=== PATIENT | male | born 1940 | race Two or more races ===

== ENCOUNTER 2021-05-30 11:30 | Outpatient (CLI) | payer OTHER | END 2021-05-30 11:31 | disposition home or self-care (01) | LOC: LAB 11:30 | PROVIDERS: ATTEND Radiology Diagnostic Radiology | DX: Z51.81 Encounter for therapeutic drug level monitoring (principal) ==

== ENCOUNTER 2021-06-02 07:15 | Outpatient (CLI) | payer OTHER | END 2021-06-02 07:25 | disposition home or self-care (01) | LOC: TOM 07:15 | PROVIDERS: ATTEND Surgery | DX: K40.31 Unilateral inguinal hernia, with obstruction, without gangrene, recurrent (principal) ==